=== PATIENT | male | born 1945 | race Caucasian/White ===

== ENCOUNTER 2019-02-23 06:18 | Day surgery (SDC) | payer MEDICARE ==
[2019-02-21 10:54] LABS: BASOPHILS # (AUTO) 0.1 X10'3 (0-0.2); BASOPHILS % (AUTO) 0.8 % (0-1); EOSINOPHILS # (AUTO) 0.3 X10'3 (0-0.9); EOSINOPHILS % (AUTO) 3.1 % (0-6); HEMATOCRIT 41.3 % (42.0-52.0); HEMOGLOBIN 14.6 g/dl (14.0-17.9); LYMPHOCYTES # (AUTO) 2.1 X10'3 (1.1-4.8); LYMPHOCYTES % (AUTO) 24.2 % (21-51); MEAN CORPUSCULAR HEMOGLOBIN 32.4 PG (27.0-31.0); MEAN CORPUSCULAR HGB CONC 35.2 g/dL (33.0-36.5); MEAN CORPUSCULAR VOLUME 92.1 FL (78-98); MEAN PLATELET VOLUME 8.3 FL (7.4-10.4); MONOCYTES % (AUTO) 11.3 % (2-12); NEUTROPHILS # (AUTO) 5.2 X10'3 (1.8-7.7); NEUTROPHILS % (AUTO) 60.6 % (42-75); PLATELET COUNT 231 X10'3 (140-440); RED BLOOD COUNT 4.49 X10'6 (4.70-6.10); WHITE BLOOD COUNT 8.6 X10'3 (4.5-11.0)
[2019-02-21 11:13] LABS: ALANINE AMINOTRANSFERASE 32 U/L (12-78); ALBUMIN/GLOBULIN RATIO 1.2 (1.1-1.5); ALKALINE PHOSPHATASE 54 IU/L (46-116); ANION GAP 13 (8-16); ASPARTATE AMINO TRANSFERASE 14 U/L (10-37); BILIRUBIN,TOTAL 0.6 MG/DL (0.1-1.0); BLOOD UREA NITROGEN 19 MG/DL (7-18); BUN/CREATININE RATIO 24.1 (5.4-32.0); CALCIUM 8.9 MG/DL (8.5-10.1); CHLORIDE 106 MMOL/L (99-107); CREATININE 0.79 MG/DL (0.60-1.10); GLUCOSE 169 MG/DL (70-104); POTASSIUM 4.2 MMOL/L (3.5-5.1); SODIUM 141 MMOL/L (135-145); TOTAL CARBON DIOXIDE 22.5 MMOL/L (24-32); TOTAL PROTEIN 7.4 G/DL (6.4-8.2); eGFR > 90 ML/MIN
[2019-02-21 11:19] LABS: PARTIAL THROMBOPLASTIN TIME 24 SECONDS (22-32)
[2019-02-23] VITALS (15 sets, daily range): BP systolic 112–141; BP diastolic 56–78
[~2019-02-23] VITALS: Ht 182.9 cm; Wt 118.7 kg
[~2019-02-23 06:18] MED LIST: ENAL2.5T PO; GEMF600T89 PO; HYDR-3965 PO; METF500T PO; NOR5T PO
[2019-02-23] MEDS ORDERED: MIRT15TA PO (06:35)
[2019-02-23] MEDS ORDERED: LEVO5TAB13 PO (06:35)
[2019-02-23] MEDS ORDERED: LISI10TA4 PO (06:35)
[2019-02-23] MEDS ORDERED: TICA90TA2 PO (06:35)
[2019-02-23] MEDS ORDERED: ATOR80TA PO (06:35)
[2019-02-23] MEDS ORDERED: LEVO25TA2 PO (06:35)
[2019-02-23] MEDS ORDERED: ASPI-611 PO (06:35)
[2019-02-23] MEDS ORDERED: FAMO-128 PO (06:35)
[2019-02-23] MEDS ORDERED: GLUC100017 PO (06:35)
[2019-02-23] MEDS ORDERED: ATEN50TA PO (06:35)
[2019-02-23] MEDS ORDERED: CHOL2000 PO (06:35)
[2019-02-23] MEDS ORDERED: FLAX100015 PO (06:35)
[2019-02-23] MEDS ORDERED: dextrose 50%-water 50ml dispensing syringe IV PRN ×2 (06:45)
[2019-02-23] MEDS ORDERED: nitroGLYCERIN 0.4mg SUBLingual tab SL PRN (06:45)
[2019-02-23] MEDS ORDERED: diphenhydrAMINE 25mg capsule PO PRN (06:45)
[2019-02-23] MEDS ORDERED: insulin Lispro (HumaLOG) vial - multi-dose SQ SCH (06:45)
[2019-02-23] MEDS ORDERED: normal saline 1,000 ML IV SCH (06:45)
[2019-02-23] MEDS ORDERED: dextrose ORAL solution 15 GM/59 ML bottle PO PRN ×2 (06:45)
[2019-02-23] MEDS ORDERED: glucagon, human recombinant 1mg kit SUBCUT PRN (06:45)
[2019-02-23] MEDS ORDERED: MESSAGE TO PHARMACY PO ONE (06:45)
[2019-02-23] MEDS ORDERED: acetylcysteine 200 MG/ml 4ml vial PO PRN (06:45)
[2019-02-23] MEDS ORDERED: LORazepam 0.5 MG tablet PO PRN (06:45)
[2019-02-23] MEDS ORDERED: GEMF600T89 PO (07:12)
[2019-02-23] MEDS ORDERED: MULT-1085 PO (07:12)
[2019-02-23] MEDS ORDERED: ATOR40TA PO (07:12)
[2019-02-23] MEDS ORDERED: METF500T PO (07:12)
[2019-02-23] MEDS ORDERED: GLIM4TAB4 PO (07:12)
[2019-02-23] MEDS ORDERED: ASCO500C17 (07:12)
[2019-02-23] MEDS ORDERED: FLO0.4C PO (07:12)
[2019-02-23] MEDS ORDERED: ENAL2.5T40 PO (07:12)
[2019-02-23] MEDS ORDERED: AMLO10TA PO (07:12)
[2019-02-23] MEDS ORDERED: ALPR0.5T8 PO (07:12)
[2019-02-23] MEDS ORDERED: OMEG1CAP2 (07:12)
[2019-02-23] MEDS ORDERED: methylPREDNISolone sod succ 125mg/2ml vial IV ONE (07:20)
[2019-02-23] MEDS ORDERED: midazolam 2 mg/2 ml injection ONE ×2 (08:33→09:27)
[2019-02-23] MEDS ORDERED: iohexol 350MG/ML 100ml bottle IV ONE (08:33)
[2019-02-23] MEDS ORDERED: fentaNYL/PF 50MCG/1 ML 2ML syringe ONE (08:33)
[2019-02-23] MEDS ORDERED: LIDOcaine 1% (10mg/ml)w/preservative injection 20ml MDV ONE (08:33)
[2019-02-23] MEDS ORDERED: iohexol 350 MG/ML 50ML vial IV ONE ×3 (08:33→09:26)
[2019-02-23] MEDS ORDERED: heparin 1,000 UNITS/NS 500ml 500 ML ONE (08:34)
[2019-02-23] MEDS ORDERED: OXAZEpam 15mg capsule PO PRN (10:25)
[2019-02-23] MEDS ORDERED: ondansetron/PF 4mg/2ml inj IV PRN (10:25)
[2019-02-23] MEDS ORDERED: HYDROcodone/acetaminophen 10/325mg tab PO PRN (10:25)
[2019-02-23] MEDS ORDERED: proCHLORperazine 10 MG/2 ml inj IV PRN (10:25)
[2019-02-23] MEDS ORDERED: HYDROcodone/acetaminophen 5mg/325mg tablet PO PRN (10:25)
--- NOTE | 2019-02-23 15:26 | NUR ---
Problems reprioritized. Patient report given, questions answered & plan of care reviewed with GENEVIEVE Velazquez.
[2019-02-23 20:37] LABS: HEMOGLOBIN A1C 6.6 % (4.5-6.2)
[2019-02-23] MEDS ORDERED: insulin glargine (Lantus) pen - multi-dose SQ SCH (21:00)
== END 2019-02-23 17:00 | disposition home or self-care (01) ==
LOC: SSTAY O 06:18
PROVIDERS: ATTEND Internal Medicine Cardiovascular Disease
DX: I25.10 Atherosclerotic heart disease of native coronary artery without angina pectoris (principal); I47.1 Supraventricular tachycardia; I49.5 Sick sinus syndrome; I10 Essential (primary) hypertension; E11.9 Type 2 diabetes mellitus without complications; J44.9 Chronic obstructive pulmonary disease, unspecified; N40.0 Benign prostatic hyperplasia without lower urinary tract symptoms; E78.00 Pure hypercholesterolemia, unspecified; Z91.013 Allergy to seafood; Z79.899 Other long term (current) drug therapy; Z79.01 Long term (current) use of anticoagulants
CPT/HCPCS: 36415; 71046; 80053; 82948; 83036; 83880; 85025; 85610; 85730; 93005; 93458; 93567; 99152; 99153; C1760; C1769; J1644; J2001; J2250; J2930; J3010; J7030; Q0163; Q9967; A4620; A6258

== ENCOUNTER 2019-10-22 20:53 | Emergency (ER) | payer MEDICARE ==
[~2019-10-22] VITALS: Ht 182.9 cm; Wt 98.0 kg
[~2019-10-22 20:53] MED LIST changes: +ALPR0.5T8 PO; +AMLO10TA PO; +ASCO500C17; +ATOR40TA PO; -ENAL2.5T PO; +ENAL2.5T40 PO; +FLO0.4C PO; +GLIM4TAB7 PO; -HYDR-3965 PO; +MULT-1085 PO; -NOR5T PO; +OMEG1CAP2
[2019-10-22 20:56] VITALS: BP 141/64
[2019-10-22] MEDS ORDERED: cephalexin 250mg capsule PO ONE (21:35)
[2019-10-22] MEDS ORDERED: CEPH500C5 PO (21:35)
== END 2019-10-22 21:57 | disposition home or self-care (01) ==
LOC: ER 20:53
DX: L03.032 Cellulitis of left toe (principal); I10 Essential (primary) hypertension; E11.9 Type 2 diabetes mellitus without complications; G89.29 Other chronic pain; Z98.890 Other specified postprocedural states; Z79.2 Long term (current) use of antibiotics; Z79.899 Other long term (current) drug therapy
CPT/HCPCS: 73660; 99283

== ENCOUNTER 2019-12-05 17:46 | Emergency (ER) | payer MEDICARE ==
[~2019-12-05] VITALS: Ht 182.9 cm; Wt 105.0 kg
[~2019-12-05 17:46] MED LIST changes: +CEPH500C5 PO
[2019-12-05] MEDS ORDERED: HYDROcodone/acetaminophen 5mg/325mg tablet PO ONE (18:45)
[2019-12-05] MEDS ORDERED: ondansetron 4mg rapidly disintigrating tab PO ONE (18:45)
--- NOTE | 2019-12-05 18:55 | NUR ---
assumed care of pt so primary nurse can break
--- NOTE | 2019-12-05 19:05 | NUR ---
ultrasound at bedside
[2019-12-05 19:10] LABS: BASOPHILS # (AUTO) 0.1 X10'3 (0-0.2); BASOPHILS % (AUTO) 0.8 % (0-1); EOSINOPHILS % (AUTO) 0.4 % (0-6); HEMATOCRIT 36.7 % (42.0-52.0); HEMOGLOBIN 12.8 g/dl (14.0-17.9); LYMPHOCYTES # (AUTO) 1.2 X10'3 (1.1-4.8); LYMPHOCYTES % (AUTO) 9.8 % (21-51); MEAN CORPUSCULAR HEMOGLOBIN 31.2 PG (27.0-31.0); MEAN CORPUSCULAR HGB CONC 34.9 g/dL (33.0-36.5); MEAN CORPUSCULAR VOLUME 89.4 FL (78-98); MEAN PLATELET VOLUME 7.8 FL (7.4-10.4); MONOCYTES # (AUTO) 1.3 X10'3 (0-0.9); MONOCYTES % (AUTO) 11.2 % (2-12); NEUTROPHILS # (AUTO) 9.3 X10'3 (1.8-7.7); NEUTROPHILS % (AUTO) 77.8 % (42-75); PLATELET COUNT 226 X10'3 (140-440); RED CELL DISTRIBUTION WIDTH 13.9 % (11.5-14.5); WHITE BLOOD COUNT 11.9 X10'3 (4.5-11.0)
--- NOTE | 2019-12-05 19:21 | NUR ---
sent pt to bathroom for urine speciman
[2019-12-05 19:22] LABS: ALANINE AMINOTRANSFERASE 40 U/L (12-78); ALBUMIN 3.4 G/DL (3.4-5.0); ALBUMIN/GLOBULIN RATIO 0.8 (1.1-1.5); ALKALINE PHOSPHATASE 88 IU/L (46-116); ANION GAP 13 (8-16); ASPARTATE AMINO TRANSFERASE 36 U/L (10-37); BILIRUBIN,TOTAL 1.4 MG/DL (0.1-1.0); BLOOD UREA NITROGEN 16 MG/DL (7-18); BUN/CREATININE RATIO 16.5 (5.4-32.0); CHLORIDE 99 MMOL/L (99-107); CREATININE 0.97 MG/DL (0.60-1.10); GLUCOSE 159 MG/DL (70-104); SODIUM 134 MMOL/L (135-145); TOTAL PROTEIN 7.9 G/DL (6.4-8.2); eGFR 75 ML/MIN
[2019-12-05 19:28] LABS: POTASSIUM 2.9 MMOL/L (3.5-5.1)
[2019-12-05] MEDS ORDERED: potassium Cl 20 mEq SR tablet PO ONE (19:35)
--- NOTE | 2019-12-05 19:35 | NUR ---
URINE SAMPLE SENT TO LAB
[2019-12-05] MEDS ORDERED: BACDS PO (19:50)
[2019-12-05 19:57] LABS: CLARITY,URINE Turbid (Clear); COLOR,URINE DARK YELLOW (Yellow); UA COLLECTION TYPE CLN CATCH MIDSTREAM
[2019-12-05 19:58] LABS: WBC,URINE TNTC /HPF (0-4)
[2019-12-05 19:59] LABS: BACTERIA,URINE 3+ /HPF (Neg); SQUAMOUS EPITHELIAL CELL,UR NONE SEEN /LPF (FEW)
[2019-12-05 20:05] VITALS: BP 107/59
== END 2019-12-05 20:07 | disposition home or self-care (01) ==
LOC: ER 17:46
DX: N45.1 Epididymitis (principal); E87.6 Hypokalemia; I10 Essential (primary) hypertension; E11.9 Type 2 diabetes mellitus without complications; G89.29 Other chronic pain; Z90.89 Acquired absence of other organs; Z91.013 Allergy to seafood; Z79.899 Other long term (current) drug therapy
CPT/HCPCS: 36415; 76870; 80053; 81001; 85025; 87077; 87088; 87186; 99284

== ENCOUNTER 2023-01-18 16:09 | Emergency (ER) | payer MEDICARE ==
[~2023-01-18 16:09] MED LIST changes: -CEPH500C5 PO
== END 2023-01-18 17:09 | disposition left against medical advice (07) ==
LOC: ER 16:09
DX: S90.93 Unspecified superficial injury of toes (principal); Z53.21 Procedure and treatment not carried out due to patient leaving prior to being seen by health care provider; X58.XXXA Exposure to other specified factors, initial encounter; Y93.89 Activity, other specified; Y92.89 Other specified places as the place of occurrence of the external cause; Y99.8 Other external cause status

== ENCOUNTER 2023-07-29 13:36 | Outpatient (CLI) | payer MEDICARE | END 2023-07-29 23:59 | disposition home or self-care (01) | LOC: RAD 13:36 | PROVIDERS: ATTEND Otolaryngology | DX: R13.14 Dysphagia, pharyngoesophageal phase (principal); K21.9 Gastro-esophageal reflux disease without esophagitis | CPT/HCPCS: 74230 ==